=== PATIENT | male | born 1990 | race African-American/Black ===

== ENCOUNTER 2019-12-20 13:28 | Emergency (ER) | payer MEDICAID ==
[~2019-12-20] VITALS: Ht 180.3 cm; Wt 105.8 kg
[2019-12-20 16:22] VITALS: BP 133/96
== END 2019-12-20 15:15 | disposition home or self-care (01) ==
LOC: ER 13:28
DX: F41.9 Anxiety disorder, unspecified (principal); R20.2 Paresthesia of skin
CPT/HCPCS: 93005; 99283

== ENCOUNTER 2020-03-20 21:59 | Emergency (ER) | payer MEDICAID ==
[~2020-03-20] VITALS: Ht 182.9 cm; Wt 103.0 kg
[2020-03-20 23:20] VITALS: BP 134/87
== END 2020-03-20 23:20 | disposition home or self-care (01) ==
LOC: ER 21:59
DX: K59.09 Other constipation (principal)
CPT/HCPCS: 99283